=== PATIENT | female | born 2005 | race Caucasian/White ===

== ENCOUNTER 2025-03-15 21:25 | Day surgery (SDC) | payer OTHER ==
[2025-03-15 21:47] VITALS: BMI 43.2
[2025-03-15] MEDS ORDERED: hydrALAZINE 20 MG/ML VIAL SLOW IVP PRN (21:57)
[2025-03-15 23:41] LABS: Glucose, Urine (Dipstick) Normal (Negative); Leukocyte Negative (Negative); Protein, Urine (Dipstick) Negative (Neg-Trace); Specific Gravity, Urine 1.030 (1.005-1.030)
[2025-03-15 23:51] LABS: Bacteria/HPF None Seen HPF (None Seen); CAUTI Indications for Culture Pregnancy; Cocaine Metabolite Screen Negative (Negative); RBC/HPF None Seen HPF (0-3); THC/Cannabinoid Screen Negative (Negative); Tricyclic Screen Negative (Negative); Urine Culture Reflex Yes Yes; WBC/HPF 0-3 HPF (0-3)
== END 2025-03-15 23:50 | disposition home or self-care (01) ==
LOC: CSHLD/OP 21:25
PROVIDERS: ATTEND Obstetrics & Gynecology
DX: O36.8120 Decreased fetal movements, second trimester, not applicable or unspecified (principal); Z3A.25 25 weeks gestation of pregnancy; Z79.899 Other long term (current) drug therapy
CPT/HCPCS: 76815; 80306; 81001; 87086